=== PATIENT | male | born 1955 | race Caucasian/White ===

== ENCOUNTER → 2017-02-19 | Outpatient (CLI) | payer BC ==
[~2017-02-19] MED LIST: HYDROCODONE BIT1 T11 PO; INSULIN; LANTUS100 U/ML SC; LIPITOR20 MG PO; METFORMIN1000 MG PO; ROBITUSSIN AC 110 ML PO; ZITHROMAX250 MG PO
== END | disposition home or self-care (01) ==
LOC: NM 09:51
DX: C61 Malignant neoplasm of prostate (principal)

== ENCOUNTER → 2017-02-20 | Outpatient (CLI) | payer BC | END | disposition home or self-care (01) | LOC: CT 01:53 | DX: C61 Malignant neoplasm of prostate (principal) ==

== ENCOUNTER 2017-03-01 06:37 | Emergency (ER) | payer BC ==
[~2017-03-01] VITALS: Ht 175.2 cm; Wt 90.7 kg
[2017-03-01 06:44] VITALS: BP 159/88
[2017-03-01] MEDS ORDERED: HYDR25T PO (06:57)
[2017-03-01] MEDS ORDERED: LISINOPRIL20 MG PO (06:57)
[2017-03-01] MEDS ORDERED: CLONIDINE HCL0.1 MG PO (06:58)
[2017-03-01] MEDS ORDERED: ZANTAC 300300 MG PO (07:07)
[2017-03-01] MEDS ORDERED: PREDNISONE10 MG PO (07:07)
== END 2017-03-01 07:53 | disposition home or self-care (01) ==
LOC: ED 06:37
DX: L23.7 Allergic contact dermatitis due to plants, except food (principal); Z79.899 Other long term (current) drug therapy

== ENCOUNTER → 2017-09-22 | Outpatient (CLI) | payer BC ==
[~2017-09-22] MED LIST changes: +CLONIDINE HCL0.1 MG PO; +HYDR25T PO; +LISINOPRIL20 MG PO; +PREDNISONE10 MG PO; +ZANTAC 300300 MG PO
== END | disposition home or self-care (01) ==
LOC: CARD 09:23
DX: R06.09 Other forms of dyspnea (principal); I50.1 Left ventricular failure, unspecified

== ENCOUNTER 2017-10-25 06:58 | Emergency (ER) | payer BC ==
[~2017-10-25] VITALS: Ht 175.2 cm; Wt 92.5 kg
[~2017-10-25 06:58] MED LIST changes: +LANTUS SOL100 UNIT/1 SQ; -LANTUS100 U/ML SC
[2017-10-25 07:04] VITALS: BP 168/90
[2017-10-25] MEDS ORDERED: FLOMAX0.4 MG PO (07:06)
== END 2017-10-25 08:41 | disposition home or self-care (01) ==
LOC: ED 06:58
DX: S93.402A Sprain of unspecified ligament of left ankle, initial encounter (principal); F10.10 Alcohol abuse, uncomplicated; Z79.84 Long term (current) use of oral hypoglycemic drugs; Z79.899 Other long term (current) drug therapy; Z79.4 Long term (current) use of insulin; X58.XXXA Exposure to other specified factors, initial encounter; Y93.89 Activity, other specified; Y92.89 Other specified places as the place of occurrence of the external cause; Y99.8 Other external cause status

== ENCOUNTER 2021-09-16 08:23 | Emergency (ER) | payer OTHER ==
[~2021-09-16] VITALS: Ht 175.2 cm; Wt 90.7 kg
[~2021-09-16 08:23] MED LIST changes: +FLOMAX0.4 MG PO; +PREDNISONE20 M1 PO; +PROVENTIL HFA6.7 GM INH; +ROBAXIN500 M1 PO; +TAMIFLU 75MG CA75 MG PO; +TESSALON PERLE100 M1 PO
[2021-09-16 08:43] VITALS: BP 139/86
[2021-09-16 09:35] LABS: BILIRUBIN Negative (Negative); BLOOD Negative (Negative); CLARITY Clear (Clear); COLOR Yellow (Yellow); GLUCOSE Negative (Negative); KETONE Negative (Negative); LEUKO ESTERASE Negative (Negative); NITRITE Negative (Negative)
[2021-09-16 09:48] LABS: MUCOUS 1+; RBC 0-2 rbc/hpf (0-2)
== END 2021-09-16 12:49 | disposition home or self-care (01) ==
LOC: ED 08:23
PROVIDERS: Student in an Organized Health Care Education/Training Program
DX: N28.89 Other specified disorders of kidney and ureter (principal); Z79.899 Other long term (current) drug therapy

== ENCOUNTER → 2021-10-14 | Outpatient (CLI) | payer OTHER ==
[2021-10-14 08:49] LABS: VITAMIN D, 25-HYDROXY 23.2 ng/mL (30-100)
[2021-10-15 09:07] LABS: CREATININE,URINE 143.1 mg/dL (Not Estab.)
[2021-10-18 00:06] LABS: METANEPHRINE, PLASMA <10.0 pg/mL (0.0-88.0); NORMETANEPHRINE, PLASMA 29.9 pg/mL (0.0-285.2)
== END | disposition home or self-care (01) ==
LOC: LAB 07:12
PROVIDERS: ATTEND Internal Medicine Nephrology
DX: N18.30 Chronic kidney disease, stage 3 unspecified (principal); D35.02 Benign neoplasm of left adrenal gland; E83.9 Disorder of mineral metabolism, unspecified

== ENCOUNTER 2022-04-09 10:22 | Emergency (ER) | payer OTHER ==
[~2022-04-09] VITALS: Wt 88.5 kg
[2022-04-09 10:42] VITALS: BP 171/99
[2022-04-09] MEDS ORDERED: CEPHALEXIN500 M1 PO (12:56)
== END 2022-04-09 14:03 | disposition home or self-care (01) ==
LOC: ED 10:22
DX: S62.635A Displaced fracture of distal phalanx of left ring finger, initial encounter for closed fracture (principal); W45.8XXA Other foreign body or object entering through skin, initial encounter; Y93.89 Activity, other specified; Y92.89 Other specified places as the place of occurrence of the external cause; Y99.8 Other external cause status

== ENCOUNTER → 2023-02-03 | Outpatient (CLI) | payer MEDICARE ==
[~2023-02-03] MED LIST changes: +CEPHALEXIN500 M1 PO
== END | disposition home or self-care (01) ==
LOC: CT 01:50
PROVIDERS: ATTEND Internal Medicine Nephrology
DX: D35.02 Benign neoplasm of left adrenal gland (principal); N18.30 Chronic kidney disease, stage 3 unspecified